=== PATIENT | male | born 1965 | race Caucasian/White ===

== ENCOUNTER 2019-03-11 14:35 | Emergency (ER) | payer BC ==
[~2019-03-11] VITALS: Ht 177.8 cm; Wt 93.0 kg
--- NOTE | 2019-03-11 14:43 | NUR ---
Dr. Valles at the bedside for MSE.
[2019-03-11] MEDS ORDERED: NITROGLYCERIN 0.4 MG/TAB BOTTLE SL ONE ×2 (14:56→15:00)
[2019-03-11] MEDS ORDERED: ASPIRIN 325 MG TABLET ONE (14:56)
[2019-03-11] MEDS ORDERED: ASPIRIN 325 MG TABLET PO ONE (15:00)
--- NOTE | 2019-03-11 15:00 | NUR ---
Pt states he is pain free at this time.
[2019-03-11] MEDS ORDERED: CAND32TA20 PO (15:08)
[2019-03-11 15:16] LABS: POTASSIUM 3.4 mmol/L (3.5-5.1)
[2019-03-11 15:20] LABS: BASOPHILS % (AUTO) 0.3 % (0.0-2.0); HEMATOCRIT 42.9 % (36.7-47.1); HEMOGLOBIN 14.5 g/dL (12.5-16.3); LYMPHOCYTES # (AUTO) 1.9 K/uL (20.0-40.0); LYMPHOCYTES % (AUTO) 48.7 % (20.5-51.5); MEAN CORPUSCULAR HEMOGLOBIN 30.5 uug (23.8-33.4); MEAN CORPUSCULAR HGB CONC 34 g/dL (32.5-36.3); MEAN CORPUSCULAR VOLUME 90.2 fL (73.0-96.2); MONOCYTES # (AUTO) 0.4 K/uL (2.0-10.0); MONOCYTES % (AUTO) 10.9 % (0.0-11.0); NEUTROPHILS # (AUTO) 1.6 K/uL (1.8-8.9); NEUTROPHILS % (AUTO) 39.1 % (38.5-71.5); PLATELET COUNT (AUTO) 169 K/uL (152-348); RED BLOOD CELL COUNT(AUTO) 4.76 MIL/uL (4.06-5.63)
[2019-03-11 15:28] LABS: BILIRUBIN,DIRECT 0.1 mg/dL (0.0-0.2); BILIRUBIN,TOTAL 0.3 mg/dL (0.2-1.0)
--- NOTE | 2019-03-11 19:07 | NUR ---
Patient does not wish to proceed with medical care recommended by Dr. Johnson. Patient given information related to possible complications, up to and including , which could occur as a result of leaving the hospital at this time. Patient verbalizes understanding of risks involved due to leaving against medical advice. Patient has signed AMA form.
--- NOTE | 2019-03-11 19:07 | NUR ---
IV removed. Catheter intact and site benign. Pressure and 4x4 gauze applied to site. No bleeding noted.
--- NOTE | 2019-03-11 19:07 | NUR ---
Patient discharged to home in stable conditon. Written and verbal after care instructions given. Patient verbalizes understanding of instructions. Pt states he has no chest pain at this time.
--- NOTE | 2019-03-11 19:08 | NUR ---
Full SBAR report given to DIANA Saha.
[2019-03-11 19:09] VITALS: BP 131/88
== END 2019-03-11 19:10 | disposition left against medical advice (07) ==
LOC: ER 14:35
DX: I25.10 Atherosclerotic heart disease of native coronary artery without angina pectoris (principal); I20.8 Other forms of angina pectoris; Z79.899 Other long term (current) drug therapy
CPT/HCPCS: 36415; 70030-TC; 71045; 85025; 85730; 93005; A4663